=== PATIENT | male | born 1975 | race Caucasian/White ===

== ENCOUNTER 2016-11-16 20:36 | Emergency (ER) | payer BC ==
[~2016-11-16] VITALS: Ht 182.9 cm; Wt 121.6 kg
[2016-11-16] MEDS ORDERED: AZIT250T3 (21:42)
[2016-11-16] MEDS ORDERED: LISI10TA4 PO (21:42)
[2016-11-16] MEDS ORDERED: OMEP40CA2 PO (21:42)
[2016-11-16] MEDS ORDERED: ALLO15TA PO (21:42)
[2016-11-17] MEDS ORDERED: ALBUTEROL SULFATE 2.5 MG/0.5 ML INH NEB SOLN NEB ONE (00:15)
[2016-11-17] MEDS ORDERED: predniSONE 20 MG TAB PO ONE (00:15)
[2016-11-17] MEDS ORDERED: IBUPROFEN 600 MG TAB PO ONE (00:15)
[2016-11-17 01:57] VITALS: BP 147/93
[2016-11-17] MEDS ORDERED: PRED20TA PO (02:04)
[2016-11-17] MEDS ORDERED: TESS100C PO (02:07)
[2016-11-17] MEDS ORDERED: ALBU17IN INH (02:08)
--- NOTE | 2016-11-17 09:08 | REP ---
Chest x-ray: Two views. History: Cough. Comparison study: July 18, 2015. Findings: The lungs are well inflated and clear. The pleural angles are sharp. Heart size is normal. There are degenerative changes in the thoracic spine. Pulmonary vasculature is not increased. Impression: No active disease. Signed by Darron Dela Cruz MD 11/17/2016 02:47 P
== END 2016-11-17 02:26 | disposition home or self-care (01) ==
LOC: M ED 23:41
DX: J20.9 Acute bronchitis, unspecified (principal); M10.9 Gout, unspecified; K21.9 Gastro-esophageal reflux disease without esophagitis; I10 Essential (primary) hypertension; Z79.899 Other long term (current) drug therapy; Z79.52 Long term (current) use of systemic steroids

== ENCOUNTER → 2017-10-31 | Outpatient (CLI) | payer BC ==
[2017-10-31 17:31] LABS: ALBUMIN 3.4 GM/DL (3.2-5.2); ALBUMIN/GLOBULIN RATIO 0.89 (1.00-1.93); ALKALINE PHOSPHATASE 101 U/L (45-117); ALT/SGPT 58 U/L (12-78); ANION GAP 8 MEQ/L (8-16); AST/SGOT 72 U/L (7-37); BILIRUBIN,TOTAL 0.5 MG/DL (0.2-1.0); BLOOD UREA NITROGEN 8 MG/DL (7-18); CALCIUM LEVEL 8.8 MG/DL (8.5-10.1); CARBON DIOXIDE LEVEL 31 MEQ/L (21-32); CHLORIDE LEVEL 103 MEQ/L (98-107); CHOLESTEROL LEVEL 135 MG/DL (<200); CHOLESTEROL RISK RATIO 1.985 (<5); CREATININE FOR GFR 0.95 MG/DL (0.70-1.30); GLOMERULAR FILTRATION RATE > 60.0 (>60); GLUCOSE, FASTING 88 MG/DL (70-100); HDL CHOLESTEROL 68 MG/DL (>40); LDL CHOLESTEROL 51.2 MG/DL (<100); NON-HDL-C 67 MG/DL; POTASSIUM SERUM 4.2 MEQ/L (3.5-5.1); SODIUM LEVEL 142 MEQ/L (136-145); THYROID STIMULATING HORMONE 0.968 uIU/ML (0.358-3.740); TOTAL PROTEIN 7.2 GM/DL (6.4-8.2); TRIGLYCERIDES LEVEL 79 MG/DL (<150)
== END ==
LOC: M WUC 11:27
DX: Z00.00 Encounter for general adult medical examination without abnormal findings (principal); I10 Essential (primary) hypertension; R53.83 Other fatigue
CPT/HCPCS: 84443

== ENCOUNTER → 2017-11-20 | Outpatient (CLI) | payer BC | LOC: M SLEEP 20:00 | DX: G47.30 Sleep apnea, unspecified (principal) | CPT/HCPCS: 95810 ==

== ENCOUNTER → 2017-12-09 | Outpatient (CLI) | payer BC | LOC: M SLEEP 19:38 | DX: G47.33 Obstructive sleep apnea (adult) (pediatric) (principal) ==

== ENCOUNTER 2018-03-16 21:38 | Emergency (ER) | payer BC | END 2018-03-16 22:00 | disposition left against medical advice (07) | LOC: M ED 21:38 | DX: S00.561A Insect bite (nonvenomous) of lip, initial encounter (principal); W57.XXXA Bitten or stung by nonvenomous insect and other nonvenomous arthropods, initial encounter; Y92.9 Unspecified place or not applicable; Y93.9 Activity, unspecified; Y99.9 Unspecified external cause status; Z53.21 Procedure and treatment not carried out due to patient leaving prior to being seen by health care provider ==

== ENCOUNTER → 2018-09-09 | Outpatient (CLI) | payer BC ==
[~2018-09-09] MED LIST: ALBU17IN INH; ALLO15TA PO; ASPI81TA85 PO; AZIT-12; LISI10TA4 PO; MAGN1TAB25 PO; OMEP40CA2 PO; PRED20TA PO; TESS100C PO; ZYLO300T6 PO
[2018-09-09 17:00] LABS: INR 1.06; PROTHROMBIN TIME 13.9 SECONDS (12.1-14.4)
== END ==
LOC: M WUC 08:51
PROVIDERS: ATTEND Orthopaedic Surgery
DX: Z01.818 Encounter for other preprocedural examination (principal); M43.16 Spondylolisthesis, lumbar region; M54.16 Radiculopathy, lumbar region

== ENCOUNTER → 2018-09-29 | Outpatient (REF) | payer BC ==
[~2018-09-29] MED LIST changes: +BACT800T5 PO; +FLOM0.4C39 PO; +OXAY1TAB PO; +PROAAER10 INH
== END ==
LOC: M LAB REF 16:40
PROVIDERS: ATTEND Family Medicine
DX: M10.9 Gout, unspecified (principal)

== ENCOUNTER 2018-10-02 07:30 | Inpatient (IN) | payer BC ==
--- NOTE | 2018-09-20 12:18 | HPE ---
DATE OF ADMISSION: 10/02/2018 ATTENDING PHYSICIAN: Dr. Apple CHIEF COMPLAINT: Back pain and pain radiating down his left leg. HISTORY: This a pleasant 43-year-old male patient with progressively worsening back pain and pain radiating down his left leg. He has failed to improve with conservative management to include physical therapy, rest, nonsteroidal anti-inflammatory drugs (NSAIDs), activity modification, and steroid injections. He continues to have symptoms with normal day-to-day activities. He has elected for surgery for his continued symptoms. He has been consented by Dr. Apple for a left L4-5 unilateral laminectomy and posterior fusion with the use of pedicle screws and iliac crest bone graft and donor bone. X-rays are notable for a dynamic spondylolisthesis at L4 on 5. MRI notable for degenerative changes mainly at L4-5 and notable spondylolisthesis at left L4 on 5. CURRENT MEDICAL CONDITIONS: 1. Gout. 2. Hypertension. 3. Gastric reflux disease. 4. Lower extremity muscle spasms. CURRENT MEDICATIONS: - lisinopril 10 mg 1 tablet once per day - allopurinol 300 mg one tablet twice a day - Prilosec 40 mg 1 tablet once per day - magnesium 400 mg 1 tablet twice a day - 81 mg aspirin 1 tablet once per day (he will discontinue that 5 days prior to surgery) ALLERGIES: - MOTRIN - MOBIC PAST SURGICAL HISTORY: 1. Hernia repair. 2. Vasectomy. FAMILY HISTORY: Arthritis, hypertension, diabetes, heart disease. SOCIAL HABITS: He does not currently smoke. He does use alcohol six beverages per day. He currently works in the [employer] field. REVIEW OF SYSTEMS: Denies fever or chills. Denies chest pain, shortness breath or cough. Denies difficulty breathing. Denies change in his bowel or bladder habits. Denies recent upper respiratory infection (URI) or urinary tract infection (UTI) symptoms. Notes persistent back pain and pain down his left leg with activities of daily living. PHYSICAL EXAMINATION: Today, reveals a well-nourished, well-developed male patient. He ambulates with a normal gait. His gait is not wide-based. He does not use assistive devices. He sits comfortably on the exam room table. There is tenderness along the lumbar spine mainly around L4-5. He does have pain with particularly hyperextension. Deep tendon reflexes are 1 at the knees and 1 at the ankles. Muscle strength is 5/5 equal and symmetrical in major muscle groups. Straight leg raise testing is irritable on the left, negative on the right. He can sensate light touch in the lower extremities. Neck is supple without adenopathy or jugular venous distention (JVD). Lungs are clear to auscultation without rales or wheeze. Heart: Regular rate and rhythm. Abdomen: Bowel sounds are present. IMPRESSION: Lumbar degenerative disk disease, lumbar spondylolisthesis, lumbar spinal stenosis, and lower extremity radiculopathy with positive nerve conduction study. PLAN: He is consented by Dr. Apple for a posterior lateral fusion with the use of pedicle screws at L4 and L5 with a left sided laminectomy.
--- NOTE | 2018-09-29 19:57 | CR ---
PREOPERATIVE EVALUATION AND CONSULTATION DATE OF CONSULTATION: 09/29/2018 The patient is being seen on 09/29/2018, and his surgery is planned for 10/02/2018. PLANNED PROCEDURE: Left L4-L5 unilateral laminectomy to be completed on 10/02/2018. SURGEON: Dr. Dmitry Apple of [facility] CONSULTING PHYSICIAN: Dr. Angel Workman of [facility] CHIEF COMPLAINT: Preoperative evaluation. HISTORY OF PRESENT ILLNESS: This is a 43-year-old patient who presents today for preoperative evaluation prior to spinal surgery to be completed at [facility]. The patient today is to have an electrocardiogram (EKG) and basic metabolic panel (BMP), per anesthesia. Clinically, the patient notes that he feels well with the exception of his low back, from which pain radiates to his legs. This is found to be lumbar spinal stenosis and planned surgical intervention. He looks forward to surgery. He denies any new symptoms or issues. He has lost significant weight. He notes that he cutdown his alcohol intake significantly. He has now gone to a near vegetarian diet and has cutdown carbohydrates. He notes that he feels well. There is no history of cardiac symptoms. No chest pain, significant shortness of breath, palpitations, or other symptoms or concerns. He denies any respiratory symptoms. No wheezing, shortness of breath. He noted that as a child he had asthma and used a Ventolin inhaler with colds, but this has not been an issue. He does have sleep apnea and uses continuous positive airway pressure (CPAP) every night and will bring this to surgery. Otherwise, we addressed his hypertension, gastroesophageal reflux disease, and gout, all of which are well treated on his present medications. He denies any other issues or concerns. He has already held his aspirin due to the impending surgery. PAST MEDICAL HISTORY: 1. GERD. 2. Gout. 3. Hypertension. 4. History of hemorrhoids. 5. Obstructive sleep apnea with good compliance on CPAP. 6. Lumbar spinal stenosis. PAST SURGICAL HISTORY: 1. Ventral hernia repair by Dr. Chan, vertical incision above the umbilicus. 2. History of vasectomy. 3. History of hemorrhoidectomies by Dr. Chan. ALLERGIES: The patient has listed extreme fatigue on MOBIC and nausea on IBUPROFEN. He has NOT had any allergies causing anaphylaxis, angioedema or swelling of the throat. MEDICATIONS: - aspirin 81 mg by mouth daily - allopurinol 300 mg by mouth daily - magnesium 400 mg by mouth daily - Lisinopril 10 mg by mouth daily - multivitamin one tablet daily - omeprazole 40 mg by mouth daily - B complex and vitamin C tablets by mouth daily FAMILY HISTORY: Father had severe coronary artery disease, age 76, type 2 diabetes, history of gastrointestinal bleed. Mother is alive at age 68 with no chronic issues. Maternal grandfather of coronary artery disease. SOCIAL HISTORY: The patient is to his [place]. They have two children. 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 He is a former smoker, previously had consumed alcohol but has recently cutdown. REVIEW OF SYSTEMS: As per history of present illness, otherwise 10 system review is completely negative. PHYSICAL EXAMINATION: VITAL SIGNS: Weight is 251 pounds, blood pressure 120/74, pulse of 84, height of 5 feet 11 inches, Body Mass Index (BMI) of 35, decrease of 10 pounds over the last 4-1/2 months. GENERAL: He appears well. No acute distress. Nontoxic. Alert and oriented times three. HEENT: Pupils are equal, round and reactive to light and accommodation. Orbits are intact. There is no discharge. External ears are benign. Oral cavity and oropharynx benign. NECK: Supple. No lymphadenopathy or thyromegaly. HEART: Regular rate and rhythm. S1, S2. No murmurs are appreciated on careful auscultation. LUNGS: Clear to auscultation with no rales, rhonchi or wheezes. ABDOMEN: Obese but soft, nontender, nondistended. Scar is well healed and just above the umbilicus. EXTREMITIES: No clubbing, cyanosis or pitting edema. NEUROLOGIC: Exam is nonfocal. Upon discussion of his back, he notes tenderness across the low back with radiation to the legs bilaterally on report, examination deferred. EKG: Showed sinus arrhythmia; however, normal axis & intervals. There is some artifact in the STT segment of the lateral leads. When compared to a 06/27/2017 tracing, aside from an improved heart rate and sinus arrhythmia, the morphology is quite similar. Laboratories completed today show a glucose of 87, creatinine 0.9. The remainder of the BMP is normal, as is magnesium of 1.8 and a uric acid level of 3.3. ASSESSMENT AND PLAN: 1. Preoperative evaluation. At this point in time, the patient does appear to be optimized based on the information available to me. He has no known cardiac issues. Although he has what appears to be a sinus arrhythmia, this has been completely asymptomatic. He has also had no wheezing or other respiratory concerns at this point in time. He does have obstructive sleep apnea and will bring his CPAP with him. He has had good compliance on this. The patient has stopped his aspirin already and will stay off of this until instructed to return after surgery. His other medical issues appear to be stable without concern or issue at this point. He will continue appropriate followup. If he has new issues prior to surgery, he will let Dr. Apple know. If you have any questions, please contact me at [phone]. 2. Lumbar stenosis. The patient looks forward to surgical intervention and improving symptomatology long-term. 3. Obstructive sleep apnea. The patient will bring his CPAP with him and understands the importance and will be monitored closely due to his known condition and other risks inherent to this. 4. Hypertension, well controlled on present medication. He will hold his Lisinopril the day of surgery. 5. Gastroesophageal reflux disease (GERD). The patient has been able to stop his omeprazole without return of symptoms on an H2 boby. He is losing weight and this may be opportunity in the future for a new trial. 6. Gout. Has done well since his allopurinol has been increased. No issues. We do await a uric acid level. 7. Ongoing care. He will see me again as scheduled in about 6 weeks with appropriate laboratories. If he has any issues perioperatively, please feel free to contact me. I am sending a template for this note to both Dr. Apple's office, as well as surgical documentation intake office. AILYN
[~2018-10-02] VITALS: Ht 180.3 cm; Wt 126.9 kg
[~2018-10-02 07:30] MED LIST changes: -BACT800T5 PO; -FLOM0.4C39 PO; -OXAY1TAB PO; -PROAAER10 INH
[2018-10-02] MEDS ORDERED: CelecoXIB (CeleBREX) 100 MG CAP PO ONE (11:15)
[2018-10-02] MEDS ORDERED: PERCOCET 5MG/325MG TAB PO ONE (11:15)
[2018-10-02] MEDS ORDERED: LR 1,000 ML IV ONE (11:15)
[2018-10-02] MEDS ORDERED: ceFAZolin SOD 1 GM in D5W MINI-BAG PLUS 50 ML IV ONE (11:15)
[2018-10-02] MEDS ORDERED: GABAPENTIN 300 MG CAP PO ONE (11:15)
[2018-10-02] MEDS ORDERED: PROAAER10 INH (11:47)
[2018-10-02] MEDS ORDERED: MIDAZOLAM INJ 2 MG/2 ML VIAL (J2250) As Ordered ONE (12:50)
[2018-10-02] MEDS ORDERED: PROPOFOL 200 MG/20 ML VIAL As Ordered ONE ×2 (12:50→18:02)
[2018-10-02] MEDS ORDERED: LIDOCAINE 2% INJ 100 MG/5 ML SDV (FOR ANES.) As Ordered ONE (12:50)
[2018-10-02] MEDS ORDERED: fentaNYL 100 MCG/2 ML INJECTION (J3010) As Ordered ONE ×3 (12:50→18:43)
[2018-10-02] MEDS ORDERED: ROCURONIUM BROMIDE 50 MG/5 ML VIAL As Ordered ONE ×2 (12:50→17:07)
[2018-10-02] MEDS ORDERED: dexameTHASONE 4 MG/ML 1ML VIAL (J1100) As Ordered ONE (12:53)
[2018-10-02] MEDS ORDERED: SUGAMMADEX SODIUM 500 MG/5 ML VIAL (BRIDION) As Ordered ONE ×2 (12:57→16:41)
[2018-10-02] MEDS ORDERED: TRANEXAMIC ACID 100 MG/ML 10ML VIAL As Ordered ONE (13:08)
[2018-10-02] MEDS ORDERED: BUPIVACAINE/EPIN 0.25% 30 ML VIAL As Ordered ONE (13:08)
[2018-10-02] MEDS ORDERED: BUPIVACAINE LIPOSOME/PF 1.3% 20ML VIAL (13.3MG/ML)(EXPAREL)(C9290 PER1MG) As Ordered ONE (13:09)
[2018-10-02] MEDS ORDERED: BACITRACIN PWD 50,000 UNITS VIAL As Ordered ONE (13:09)
[2018-10-02] MEDS ORDERED: VANCOMYCIN HCL 500 MG/10 ML VIAL (J3370) As Ordered ONE (13:09)
[2018-10-02] MEDS ORDERED: BUPIVACAINE HCL 0.5% 30 ML VIAL As Ordered ONE (13:09)
[2018-10-02] MEDS ORDERED: EPINEPHrine INJ 1 MG/ML 1ML AMP As Ordered ONE (13:09)
[2018-10-02] MEDS ORDERED: THROMBIN SOLN 20,000 UNITS KIT As Ordered ONE (13:10)
[2018-10-02] MEDS ORDERED: HYDROmorphone HCL 2 MG/ML 1ML VIAL (J1170) As Ordered ONE (15:16)
[2018-10-02] MEDS ORDERED: PHENYLEPHRINE INJ 10MG/ML VIAL (J2370) As Ordered ONE (15:17)
[2018-10-02] MEDS ORDERED: LIDOCAINE 2% 5ML JELLY UROJET As Ordered ONE ×2 (15:18→16:05)
[2018-10-02] MEDS ORDERED: CONRAY-60 60% 50ML VIAL (Q9961) As Ordered ONE (16:05)
[2018-10-02] MEDS ORDERED: CYSTO-CONRAY II 17.2% 250ML VIAL (Q9958) As Ordered ONE (16:22)
[2018-10-02] MEDS ORDERED: ONDANSETRON 4MG/2ML VIAL (J2405) As Ordered ONE (16:41)
[2018-10-02 18:15] VITALS: BP 131/86
[2018-10-02] MEDS: fentaNYL 100 MCG/2 ML INJECTION (J3010) IV PRN ×4 (18:44→19:10)
[2018-10-02] MEDS ORDERED: LR 1,000 ML IV SCH (19:00)
[2018-10-02] MEDS ORDERED: ONDANSETRON 4MG/2ML VIAL (J2405) IV PRN (19:00)
[2018-10-02] MEDS ORDERED: PERCOCET 5MG/325MG TAB PO PRN (19:00)
[2018-10-02] MEDS ORDERED: METOCLOPRAMIDE INJ 10MG/2ML VIAL (J2765) IV PRN (19:00)
--- NOTE | 2018-10-02 20:04 | REP ---
Retrograde urethrogram and cystogram. History: Stricture. Placement of suprapubic catheter. Fluoroscopy time was 57 seconds. Findings: A sequence of 13 last image hold fluoroscopically obtained spot radiographs document urethral contrast injection and cystostomy catheter injection. There is some contrast extravasation into the vikas vesicle space and some lymphatic reflux is observed on the retrograde urethrogram. Electronically Signed by Darron Dela Cruz MD 10/02/2018 08:27 P
--- NOTE | 2018-10-02 20:04 | REP ---
LIMITED PELVIC ULTRASOUND: HISTORY: Suprapubic catheter placement. Two images of the urinary bladder were obtained. The bladder is not well distended. There are no filling defects in the urinary bladder. IMPRESSION:Limited pelvic ultrasound as described. Electronically Signed by Azael Oropeza MD 10/03/2018 08:25 A
[2018-10-02 20:45] VITALS: BP 130/84
[2018-10-02 21:15] VITALS: BP 134/90
[2018-10-02] MEDS ORDERED: ALBUTEROL 90 MCG/ACT 8GM HFA INHALER INH PRN (21:30)
[2018-10-02] MEDS ORDERED: ACETAMINOPHEN 500 MG TAB PO PRN (21:30)
[2018-10-02 22:15] VITALS: BP 130/86
[2018-10-02 23:15] VITALS: BP 126/80
[2018-10-02] MEDS: PERCOCET 5MG/325MG TAB PO PRN (23:36)
[2018-10-03 00:15] VITALS: BP 121/70
[2018-10-03 01:15] VITALS: BP 118/66
[2018-10-03 05:15] VITALS: BP 127/84
[2018-10-03 06:00] VITALS: BP 127/84
[2018-10-03] MEDS: PERCOCET 5MG/325MG TAB PO PRN ×2 (06:37→11:35)
--- NOTE | 2018-10-03 07:15 | RO ---
DATE OF PROCEDURE: 10/02/2018 PREOPERATIVE DIAGNOSIS: POSTOPERATIVE DIAGNOSIS: PROCEDURE: SURGEON: Dr. Dmitry Apple SWITCHER: ANESTHESIA: DESCRIPTION OF PROCEDURE: The date of the procedure was to be 10/02/2018. Mr. Pineda is a 43-year-old gentleman who was to have a spinal decompression and fusion procedure for spondylolisthesis. He was seen and examined in the preoperative holding area. The consent was recently reviewed. The patient was brought to the operating room. He was intubated and then unfortunately we were unable to catheterize the patient with a Sheets catheter. Because of this, we contacted urology, Dr. Wall, in consultation to help us potentially put in a Coude catheter. She utilized viscous lidocaine along with a Coude catheter and was not able to cannulate the patient's bladder with the catheter. Then she implemented cystoscopy and was not able to cannulate the patient's bladder. Because of this we canceled the patient's spinal surgery and Dr. Wall took over from there because of the patient's outlet obstruction to implement further interventions, potentially a suprapubic catheter. For further details, please refer to Dr. Wall's notes and interpretation. I did meet with Mr. Pineda's after we canceled the procedure and I explained the situation. Dr. Wall also met with Mr. Pineda's and discussed potential interventions for the outlet obstruction. For further details, please refer to Dr. Wall's notes.
[2018-10-03] MEDS ORDERED: LISINOPRIL 10 MG TAB PO SCH (09:00)
[2018-10-03] MEDS ORDERED: ALLOPURINOL 300 MG TAB PO SCH ×2 (09:00→21:00)
[2018-10-03] MEDS ORDERED: OMEPRAZOLE 20 MG CAP PO SCH ×2 (09:00→21:00)
[2018-10-03] MEDS ORDERED: ASPIRIN 81 MG ENTERIC TAB PO SCH (09:00)
[2018-10-03] MEDS ORDERED: BACT800T5 PO (10:07)
[2018-10-03] MEDS ORDERED: FLOM0.4C39 PO (10:07)
[2018-10-03] MEDS ORDERED: OXAY1TAB PO (10:07)
--- NOTE | 2018-10-10 09:40 | DSES ---
DATE OF ADMISSION: 10/02/2018 DATE OF DISCHARGE: 10/03/2018 HISTORY OF PRESENT ILLNESS This is a pleasant 43-year-old male with continuing back pain and left leg radiating discomfort. He consented for a left L4-5 unilateral laminectomy and posterior fusion with use of pedicle screws, iliac crest bone graft and donor bone. X-rays were notable for dynamic spondylolisthesis at L4 on 5. MRI notable for degenerative changes, mainly at L4-5 and notable spondylolisthesis at L4 on 5. This proposed procedure was actually cancelled secondary to her urethral stricture. AILYN
== END 2018-10-03 12:49 | disposition home or self-care (01) | DRG 951 ==
LOC: M OR 11:00 → M MSPAV 20:00
PROVIDERS: ADMIT Orthopaedic Surgery; ATTEND Orthopaedic Surgery
PROC: 0T9B00Z Drainage of Bladder with Drainage Device, Open Approach (ICD-10-PCS; principal; 2018-10-02 13:25)
DX: M43.16 Spondylolisthesis, lumbar region (principal); I10 Essential (primary) hypertension; N32.0 Bladder-neck obstruction; M51.26 Other intervertebral disc displacement, lumbar region; Z53.29 Procedure and treatment not carried out because of patient's decision for other reasons; M10.9 Gout, unspecified; K21.9 Gastro-esophageal reflux disease without esophagitis; Z79.899 Other long term (current) drug therapy; Z79.82 Long term (current) use of aspirin; Z88.8 Allergy status to other drugs, medicaments and biological substances; G47.33 Obstructive sleep apnea (adult) (pediatric)

== ENCOUNTER → 2018-10-12 | Outpatient (REF) | payer BC ==
[~2018-10-12] MED LIST changes: +BACT800T5 PO; +FLOM0.4C39 PO; +LEVO500T3 PO; +MAGN250T7 PO; +OXAY1TAB PO; +PROAAER10 INH
== END ==
LOC: M SMT 17:18
PROVIDERS: ATTEND Nurse Practitioner Family
DX: T14.8XXA Other injury of unspecified body region, initial encounter (principal); W18.30XA Fall on same level, unspecified, initial encounter; Y92.009 Unspecified place in unspecified non-institutional (private) residence as the place of occurrence of the external cause

== ENCOUNTER 2018-10-18 06:05 | Day surgery (SDC) | payer BC ==
[~2018-10-18] VITALS: Ht 182.9 cm; Wt 113.4 kg
[2018-10-18] MEDS ORDERED: LIDOCAINE 2% INJ 100 MG/5 ML SDV (FOR ANES.) As Ordered ONE (06:59)
[2018-10-18] MEDS ORDERED: ONDANSETRON 4MG/2ML VIAL (J2405) As Ordered ONE ×2 (06:59→08:46)
[2018-10-18] MEDS ORDERED: fentaNYL 250 MCG/5 ML INJECTION (J3010) As Ordered ONE (06:59)
[2018-10-18] MEDS ORDERED: MIDAZOLAM INJ 2 MG/2 ML VIAL (J2250) As Ordered ONE ×2 (06:59→08:21)
[2018-10-18] MEDS ORDERED: PROPOFOL 200 MG/20 ML VIAL As Ordered ONE (06:59)
[2018-10-18] MEDS ORDERED: ROCURONIUM BROMIDE 50 MG/5 ML VIAL As Ordered ONE (06:59)
[2018-10-18] MEDS ORDERED: dexameTHASONE 4 MG/ML 1ML VIAL (J1100) As Ordered ONE (07:00)
[2018-10-18] MEDS ORDERED: LR 1,000 ML IV ONE (07:00)
[2018-10-18] MEDS ORDERED: GENTAMICIN 80 MG in APPROPRIATE DILUENT 1 EA IV ONE (07:00)
[2018-10-18] MEDS ORDERED: PIPERACILLIN/TAZOBACTAM SOD 3.375 GM in D5W MINI-BAG PLUS 50 ML IV ONE (07:00)
[2018-10-18] MEDS ORDERED: HYDROmorphone HCL 2 MG/ML 1ML VIAL (J1170) As Ordered ONE (07:00)
[2018-10-18] MEDS ORDERED: SUGAMMADEX SODIUM 500 MG/5 ML VIAL (BRIDION) As Ordered ONE (07:01)
[2018-10-18] MEDS ORDERED: LIDOCAINE 1% SDV INJ 30 ML VIAL As Ordered ONE (07:14)
[2018-10-18] MEDS ORDERED: BUPIVACAINE HCL 0.25% 30 ML VIAL As Ordered ONE (07:14)
[2018-10-18] MEDS ORDERED: KETAMINE HCL 200 MG/20 ML VIAL As Ordered ONE (08:19)
[2018-10-18] MEDS ORDERED: PHENYLephrine HCL 500 MCG/5 ML (100MCG/ML) SYRINGE (J2370) As Ordered ONE ×2 (08:22→08:35)
[2018-10-18] MEDS ORDERED: CALCIUM CHLORIDE 10% 1 GM/10 ML SYR As Ordered ONE (08:46)
[2018-10-18] MEDS ORDERED: VASOPRESSIN INJ 20 UNITS/ML VIAL As Ordered ONE (08:53)
[2018-10-18] MEDS ORDERED: fentaNYL 100 MCG/2 ML INJECTION (J3010) As Ordered ONE (10:35)
[2018-10-18] MEDS: fentaNYL 100 MCG/2 ML INJECTION (J3010) IV PRN ×4 (10:38→10:54)
[2018-10-18] MEDS ORDERED: HYDROMORPHONE HCL 0.5 MG/ 0.5 ML SYRINGE (J1170 PER 1) IV PRN (10:45)
[2018-10-18] MEDS ORDERED: PERCOCET 5MG/325MG TAB PO PRN ×2 (10:45)
[2018-10-18] MEDS ORDERED: ONDANSETRON 4MG/2ML VIAL (J2405) IV PRN (10:45)
[2018-10-18] MEDS ORDERED: LR 1,000 ML IV SCH (10:45)
[2018-10-18] MEDS: PERCOCET 5MG/325MG TAB PO PRN ×2 (10:48→12:20)
[2018-10-18 12:40] VITALS: BP 132/88
--- NOTE | 2018-10-18 14:53 | RO ---
DATE OF PROCEDURE: 10/18/2018 PREOPERATIVE DIAGNOSIS: Urethral stricture. POSTOPERATIVE DIAGNOSIS: Urethral stricture. PROCEDURE: Open cystotomy and suprapubic catheter placement. SURGEON: Mandeep Quevedo MD SERVICE WRITER ADVISOR: JADYN Quinones ANESTHESIA: General. OPERATIVE INDICATIONS: This is a 43-year-old male who was brought to the operating room a few weeks ago for attempted back surgery, but at the time, they could not get a catheter in. He was found to have a urethral stricture at that time; and, therefore, a 14-Albanian suprapubic catheter was placed. The patient will likely need urethra reconstructive surgery; and in preparation for that, he was brought back to the operating room to upsize the suprapubic catheter. DESCRIPTION OF PROCEDURE: The patient was brought to the operating room where general anesthesia was induced. Prophylactic antibiotics were infused. He was then placed in the supine position and prepped and draped in the usual sterile fashion. Of note, his previously-placed 14-Albanian suprapubic catheter was prepped into the operative field. At this point, an approximately 3-4-cm midline suprapubic incision was made in line with the previously-placed suprapubic catheter. I then dissected down through the subcutaneous tissues and debrided any unhealthy-appearing tissue. The rectus fascia was then opened, and then the bellies of the rectus muscle were bluntly spread. I then dissected down to the bladder at this point. I then utilized the previously-placed 14-Albanian suprapubic catheter to fill the bladder with approximately 100 mL of normal saline. A clamp was placed on this. I then dissected down to the perivesical fat; and then using a spinal needle, I aspirated an area that I thought was the bladder and confirmed it was indeed the bladder. Once that was done, a 3-0 chromic pursestring stitch was then placed at the dome of the bladder. A cystotomy was then performed using a combination of Bovie and a scissors. Once fluid started draining, a 20-Albanian catheter was inserted into the cystotomy, and the balloon was filled with 7 mL of sterile water. The pursestring stitch was then tied down around the new suprapubic catheter. I then placed a 2-0 Vicryl figure-of-8 stitch around the previously-placed suprapubic catheter, and then that 14-Albanian catheter was removed. The figure-of-8 stitch was tied down to close the old cystotomy. At this point, the wound was thoroughly irrigated with warm normal saline. I then closed the rectus fascia using several figure-of-8 #1 nonlooped polydioxanone suture (PDS). Once the fascia was closed, the wound was thoroughly irrigated again with warm saline. I then reapproximated the subcutaneous tissues using interrupted 3-0 Vicryl suture. Once that was done, the skin was closed around the suprapubic catheter using running 4-0 Monocryl subcuticular stitch. Once the skin was closed, I then further secured the suprapubic catheter with two separate #0 Prolene sutures into the skin and around the catheter to help prevent it from being pulled accidentally. Once that was done, local anesthetic was applied, and then Dermabond was applied to the incision, and then this marked the conclusion of the procedure. The catheter was then connected to gravity drainage. The patient was awakened from anesthesia and transported to the recovery room in stable condition. ESTIMATED BLOOD LOSS: 10 mL. COMPLICATIONS: None. SPECIMENS: None. PLAN: The patient will be followup in the clinic in approximately 2 weeks for postoperative visit. Assuming he is doing well at that point, we will get him referred to [facility] for possible urethral reconstructive surgery. AILYN
== END 2018-10-18 12:41 | disposition home or self-care (01) ==
LOC: M SDC 06:05
PROVIDERS: ATTEND Urology
DX: N35.919 Unspecified urethral stricture, male, unspecified site (principal); I10 Essential (primary) hypertension; M10.9 Gout, unspecified; K21.9 Gastro-esophageal reflux disease without esophagitis; M12.9 Arthropathy, unspecified; M54.5 Low back pain; M54.16 Radiculopathy, lumbar region; J45.909 Unspecified asthma, uncomplicated; R06.83 Snoring; G47.33 Obstructive sleep apnea (adult) (pediatric); F41.9 Anxiety disorder, unspecified; T88.59XD Other complications of anesthesia, subsequent encounter; Z88.6 Allergy status to analgesic agent; Z79.899 Other long term (current) drug therapy; Z87.891 Personal history of nicotine dependence
CPT/HCPCS: 51102; J1100; J1170; J1580; J2250; J2370; J2405; J2543; J3010

== ENCOUNTER → 2018-10-31 | Outpatient (REF) | payer BC ==
[2018-10-31 19:57] LABS: INFLUENZA A AMPLIFICATION NEGATIVE (NEGATIVE); INFLUENZA B AMPLIFICATION NEGATIVE (NEGATIVE)
== END ==
LOC: M LAB REF 17:49
PROVIDERS: ATTEND Physician Assistant Medical
DX: J11.1 Influenza due to unidentified influenza virus with other respiratory manifestations (principal)

== ENCOUNTER → 2018-12-22 | Outpatient (CLI) | payer BC ==
[~2018-12-22] MED LIST changes: -ALLO15TA PO; +ALLO300T2 PO; -MAGN1TAB25 PO; +MAGN1TAB26 PO
--- NOTE | 2018-12-22 10:35 | REP ---
MR BRAIN WITHOUT CONTRAST: HISTORY: Involuntary movements. Several punctate areas of increased signal intensity on T2-weighted images are present in the subcortical white matter. This represents small vessel ischemic disease. There is no intraparenchymal hemorrhage, infarct, mass or midline shift. The ventricular system is normal in appearance. There is no extracerebral collection. Mucosal thickening is present in the maxillary and sphenoid sinuses. IMPRESSION: Minimal small vessel ischemic disease. Electronically Signed by Azael Oropeza MD 12/22/2018 10:41 A
== END ==
LOC: M RAD 09:30
PROVIDERS: ATTEND Psychiatry & Neurology Neurology
DX: I67.82 Cerebral ischemia (principal); R25.8 Other abnormal involuntary movements; R25.1 Tremor, unspecified; R20.2 Paresthesia of skin

== ENCOUNTER → 2019-01-06 | Outpatient (CLI) | payer BC ==
[2019-01-06 19:16] LABS: FREE T4 0.99 NG/DL (0.76-1.46); RHEUMATOID FACTOR QUANT < 10.0 IU/ML (<15.0); THYROID STIMULATING HORMONE 0.579 uIU/ML (0.358-3.740); TOTAL PROTEIN 6.6 GM/DL (6.4-8.2)
[2019-01-06 19:20] LABS: HEMOGLOBIN A1c 4.9 %
[2019-01-09 12:45] LABS: ALBUMIN 3.39 GM/DL (3.29-5.55); ALBUMIN % 51.4 % (55.8-66.1); ALPHA-1-GLOBULIN % 4.9 % (2.9-4.9); ALPHA-1-GLOBULINS 0.32 GM/DL (0.17-0.41); ALPHA-2-GLOBULINS 0.63 GM/DL (0.42-0.99); ALPHA-2-GLOBULINS % 9.5 % (7.1-11.8); BETA-1-GLOBULINS 0.56 GM/DL (0.28-0.60); BETA-1-GLOBULINS % 8.5 % (4.7-7.2); BETA-2-GLOBULINS 0.42 GM/DL (0.19-0.55); BETA-2-GLOBULINS % 6.3 % (3.2-6.5); GAMMA GLOBULIN % 19.4 % (11.1-18.8); GAMMA GLOBULINS 1.28 GM/DL (0.65-1.58)
[2019-01-09 14:25] LABS: VITAMIN B12 LEVEL 289 PG/ML
[2019-01-09 14:26] LABS: FOLATE 8.5 NG/ML
== END ==
LOC: M WUC 15:30
PROVIDERS: ATTEND Psychiatry & Neurology Neurology
DX: E07.9 Disorder of thyroid, unspecified (principal); E11.9 Type 2 diabetes mellitus without complications; R20.0 Anesthesia of skin

== ENCOUNTER → 2019-01-26 | Outpatient (REF) | payer BC ==
[2019-01-26 14:00] LABS: APPEARANCE, URINE TURBID (CLEAR); BACTERIA, URINE AUTO 1+ (NEGATIVE); BILIRUBIN, URINE AUTO NEGATIVE (NEGATIVE); BLOOD, URINE BLOOD 1+ (NEGATIVE); COLOR, URINE AMBER (YELLOW); GLUCOSE, URINE (UA) AUTO NEGATIVE (NEGATIVE); KETONE, URINE AUTO 1+ mg/dL (NEGATIVE); LEUKOCYTE ESTERASE, URINE AUTO 3+ (NEGATIVE); NITRITE, URINE AUTO NEGATIVE (NEGATIVE); PROTEIN, URINE AUTO 2+ mg/dL (NEGATIVE); RBC, URINE AUTO 18 /HPF (0-3); SPECIFIC GRAVITY URINE AUTO 1.018 (1.002-1.035); SQUAMOUS EPITHELIAL CELL UR AU 0 /HPF (0-6); UROBILINOGEN, URINE AUTO 0.2 mg/dL (0.0-2.0); WBC, URINE AUTO TNTC /HPF (0-3)
== END ==
LOC: M LAB REF 13:11
PROVIDERS: ATTEND Student in an Organized Health Care Education/Training Program
DX: R39.9 Unspecified symptoms and signs involving the genitourinary system (principal)

== ENCOUNTER → 2019-05-12 | Outpatient (CLI) | payer BC ==
[~2019-05-12] MED LIST changes: -OMEP40CA2 PO; +OMEP40CA97 PO
[2019-05-12 18:57] LABS: ALBUMIN 3.6 GM/DL (3.2-5.2); ALT/SGPT 33 U/L (12-78); BILIRUBIN,TOTAL 0.5 MG/DL (0.2-1.0); BLOOD UREA NITROGEN 6 MG/DL (7-18); CALCIUM LEVEL 8.9 MG/DL (8.5-10.1); CARBON DIOXIDE LEVEL 28 MEQ/L (21-32); CHLORIDE LEVEL 102 MEQ/L (98-107); CHOLESTEROL LEVEL 166 MG/DL (<200); CHOLESTEROL RISK RATIO 1.522 (<5); CREATININE FOR GFR 0.79 MG/DL (0.70-1.30); GLOMERULAR FILTRATION RATE > 60.0 (>60); GLUCOSE, FASTING 82 MG/DL (70-100); HDL CHOLESTEROL 109 MG/DL (>40); LDL CHOLESTEROL 48 MG/DL (<100); MAGNESIUM LEVEL 2.1 MG/DL (1.8-2.4); NON-HDL-C 57 MG/DL; POTASSIUM SERUM 3.8 MEQ/L (3.5-5.1); SODIUM LEVEL 140 MEQ/L (136-145); THYROID STIMULATING HORMONE 0.737 uIU/ML (0.358-3.740); TOTAL PROTEIN 7.2 GM/DL (6.4-8.2); TRIGLYCERIDES LEVEL 47 MG/DL (<150); URIC ACID 2.9 MG/DL (3.5-7.2)
== END ==
LOC: M WUC 09:01
PROVIDERS: ATTEND Family Medicine
DX: E78.5 Hyperlipidemia, unspecified (principal); E83.42 Hypomagnesemia; M10.9 Gout, unspecified; I10 Essential (primary) hypertension

== ENCOUNTER → 2019-07-09 | Outpatient (REF) | payer BC ==
[2019-07-09 20:00] LABS: FOLATE 6.6 NG/ML
== END ==
LOC: M LABNEURO 15:07
PROVIDERS: ATTEND Psychiatry & Neurology Neurology
DX: D51.9 Vitamin B12 deficiency anemia, unspecified (principal)

== ENCOUNTER → 2019-09-09 | Outpatient (CLI) | payer BC ==
[2019-09-09 18:29] LABS: ALBUMIN 3.7 GM/DL (3.2-5.2); ALT/SGPT 18 U/L (12-78); BILIRUBIN,TOTAL 0.5 MG/DL (0.2-1.0); BLOOD UREA NITROGEN 11 MG/DL (7-18); CALCIUM LEVEL 9.4 MG/DL (8.5-10.1); CARBON DIOXIDE LEVEL 31 MEQ/L (21-32); CHLORIDE LEVEL 103 MEQ/L (98-107); CREATININE FOR GFR 0.89 MG/DL (0.70-1.30); GLOMERULAR FILTRATION RATE > 60.0 (>60); GLUCOSE, FASTING 90 MG/DL (70-100); POTASSIUM SERUM 3.8 MEQ/L (3.5-5.1); SODIUM LEVEL 141 MEQ/L (136-145); TOTAL PROTEIN 7.4 GM/DL (6.4-8.2); URIC ACID 4.5 MG/DL (3.5-7.2)
== END ==
LOC: M WUC 15:09
PROVIDERS: ATTEND Family Medicine
DX: M10.9 Gout, unspecified (principal); I10 Essential (primary) hypertension

== ENCOUNTER → 2020-03-01 | Outpatient (CLI) | payer BC ==
[2020-03-01 18:13] LABS: ALBUMIN 3.8 GM/DL (3.2-5.2); ALT/SGPT 29 U/L (12-78); BILIRUBIN,TOTAL 0.6 MG/DL (0.2-1.0); BLOOD UREA NITROGEN 10 MG/DL (7-18); CALCIUM LEVEL 8.9 MG/DL (8.5-10.1); CARBON DIOXIDE LEVEL 31 MEQ/L (21-32); CHLORIDE LEVEL 105 MEQ/L (98-107); CHOLESTEROL LEVEL 180 MG/DL (<200); CHOLESTEROL RISK RATIO 1.714 (<5); CREATININE FOR GFR 0.78 MG/DL (0.70-1.30); GLOMERULAR FILTRATION RATE > 60.0 (>60); GLUCOSE, FASTING 83 MG/DL (70-100); HDL CHOLESTEROL 105 MG/DL (>40); LDL CHOLESTEROL 67 MG/DL (<100); NON-HDL-C 75 MG/DL; POTASSIUM SERUM 3.8 MEQ/L (3.5-5.1); SODIUM LEVEL 140 MEQ/L (136-145); TOTAL PROTEIN 7.4 GM/DL (6.4-8.2); TRIGLYCERIDES LEVEL 42 MG/DL (<150); URIC ACID 5.1 MG/DL (3.5-7.2)
== END ==
LOC: M WUC 10:06
PROVIDERS: ATTEND Family Medicine
DX: R53.83 Other fatigue (principal); E78.5 Hyperlipidemia, unspecified; M10.9 Gout, unspecified; I10 Essential (primary) hypertension

== ENCOUNTER → 2020-08-23 | Outpatient (CLI) | payer BC ==
[~2020-08-23] MED LIST changes: -ASPI81TA85 PO; +ASPI81TA86 PO
[2020-08-23 11:03] LABS: BASO # 0.1 10^3/uL (0.0-0.2); BASO % 1.7 % (0.0-1.0); EOS # 0.1 10^3/uL (0.0-0.5); EOS % 4.8 % (0.0-3.0); HEMATOCRIT 37.8 % (42.0-52.0); LYMPH # 1.2 10^3/uL (1.5-5.0); LYMPH % 39.8 % (24.0-44.0); MEAN CORPUSCULAR HEMOGLOBIN 32.2 pg (27.0-33.0); MEAN CORPUSCULAR HGB CONC 34.4 g/dl (32.0-36.5); MEAN CORPUSCULAR VOLUME 93.6 fl (80.0-96.0); MONO # 0.4 10^3/uL (0.0-0.8); MONO % 14.2 % (0.0-5.0); NEUTROPHILS # 1.1 10^3/uL (1.5-8.5); NEUTROPHILS % 39.2 % (36.0-66.0); PLATELET COUNT, AUTOMATED 129 10^3/uL (150-450); RED BLOOD COUNT 4.04 10^6/uL (4.30-6.10); WHITE BLOOD COUNT 2.9 10^3/uL (4.0-10.0)
[2020-08-23 11:27] LABS: ALBUMIN 3.7 GM/DL (3.2-5.2); ALT/SGPT 23 U/L (12-78); BILIRUBIN,TOTAL 0.5 MG/DL (0.2-1.0); BLOOD UREA NITROGEN 8 MG/DL (7-18); CALCIUM LEVEL 8.9 MG/DL (8.5-10.1); CARBON DIOXIDE LEVEL 29 MEQ/L (21-32); CHLORIDE LEVEL 105 MEQ/L (98-107); CREATININE FOR GFR 0.85 MG/DL (0.70-1.30); GLOMERULAR FILTRATION RATE > 60.0 (>60); GLUCOSE, FASTING 107 MG/DL (70-100); POTASSIUM SERUM 3.7 MEQ/L (3.5-5.1); SODIUM LEVEL 142 MEQ/L (136-145); TOTAL PROTEIN 7.2 GM/DL (6.4-8.2); URIC ACID 5.3 MG/DL (3.5-7.2)
[2020-08-25 10:13] LABS: VITAMIN B12 LEVEL > 2000 PG/ML (247-911)
== END ==
LOC: M LAB 09:33
PROVIDERS: ATTEND Family Medicine
DX: E53.8 Deficiency of other specified B group vitamins (principal); I10 Essential (primary) hypertension; M10.9 Gout, unspecified

== ENCOUNTER → 2021-07-14 | Outpatient (REF) | payer BC ==
[~2021-07-14] MED LIST changes: +LISI10TA22 PO; -LISI10TA4 PO; +OMEP40CA4 PO; -OMEP40CA97 PO
== END ==
LOC: M LAB REF 16:40
PROVIDERS: ATTEND Family Medicine
DX: M10.9 Gout, unspecified (principal)

== ENCOUNTER → 2021-07-28 | Outpatient (CLI) | payer BC ==
--- NOTE | 2021-07-28 09:29 | REP ---
INDICATION: ELEVATED LFT'S. COMPARISON: None TECHNIQUE: Real-time sonographic evaluation of the right upper quadrant with Doppler FINDINGS: Multiple ultrasonographic images of the liver show diffuse increased echoes throughout the hepatic parenchyma without evidence of a mass or ductal dilatation. The common bile duct measures approximately 3 mm in its greatest transverse dimension. Multiple ultrasonographic images of the gallbladder show no focal or diffuse gallbladder wall thickening. There are no echogenic foci within the gallbladder lumen, which casts acoustic shadows. There is no pericholecystic edema. Images of the pancreatic region show no gross abnormality. The imaged portion of the right kidney is unremarkable. IMPRESSION: Fatty infiltration of the liver. Accredited by the [employer] in General Ultrasound. <Electronically signed by Demian Sullivan > 07/28/21 [id number]
== END ==
LOC: M RAD 07:34
PROVIDERS: ATTEND Family Medicine
DX: K76.0 Fatty (change of) liver, not elsewhere classified (principal); R94.5 Abnormal results of liver function studies

== ENCOUNTER → 2021-09-26 | Outpatient (CLI) | payer BC ==
[~2021-09-26] MED LIST changes: +ALLO10TA PO; +ASPI81TA26 PO; +COLA100C5 PO; +CYAN500T14 PO; -LEVO500T3 PO; +LEVO500T4 PO; +OXYB5TAB10 PO; +VITMTA PO
== END ==
LOC: M LABSMTC 10:46
PROVIDERS: ATTEND Anesthesiology
DX: Z01.812 Encounter for preprocedural laboratory examination (principal); Z20.822 Contact with and (suspected) exposure to COVID-19

== ENCOUNTER 2021-10-01 08:48 | Day surgery (SDC) | payer SELFPAY ==
[~2021-10-01] VITALS: Ht 180.3 cm; Wt 102.4 kg
[~2021-10-01 08:48] MED LIST changes: +NS 1,000 ML IV ONE
[2021-10-01] MEDS ORDERED: propofoL 200 MG/20 ML VIAL As Ordered ONE (09:39)
[2021-10-01 10:15] VITALS: BP 122/84
== END 2021-10-01 10:50 | disposition home or self-care (01) ==
LOC: M OPP 08:48
PROVIDERS: ATTEND Surgery
DX: Z12.11 Encounter for screening for malignant neoplasm of colon (principal); K57.30 Diverticulosis of large intestine without perforation or abscess without bleeding; K64.8 Other hemorrhoids; Z79.82 Long term (current) use of aspirin; Z79.899 Other long term (current) drug therapy; Z88.8 Allergy status to other drugs, medicaments and biological substances; Z87.891 Personal history of nicotine dependence

== ENCOUNTER → 2022-04-23 | Outpatient (CLI) | payer BC ==
[~2022-04-23] MED LIST changes: +LEVO1TAB39 PO; -LEVO500T4 PO; -NS 1,000 ML IV ONE
== END ==
LOC: M EKG 14:42
PROVIDERS: ATTEND Family Medicine
DX: R00.2 Palpitations (principal)

== ENCOUNTER → 2022-07-09 | Outpatient (REF) | payer BC ==
[2022-07-09 17:38] LABS: URIC ACID 4.8 MG/DL (3.5-7.2)
== END ==
LOC: M LAB REF 16:13
PROVIDERS: ATTEND Family Medicine
DX: E53.8 Deficiency of other specified B group vitamins (principal); M10.9 Gout, unspecified

== ENCOUNTER → 2023-01-02 | Outpatient (CLI) | payer BC ==
[2023-01-02 10:04] LABS: ALBUMIN 3.5 G/DL (3.2-5.2); ALKALINE PHOSPHATASE 63 U/L (46-116); ALT/SGPT 17 U/L (7.0-40); AST/SGOT 22 U/L (<34); BILIRUBIN,TOTAL 0.4 MG/DL (0.3-1.2); BLOOD UREA NITROGEN 11 MG/DL (9-23); CARBON DIOXIDE LEVEL 33 MMOL/L (20-31); CHLORIDE LEVEL 106 MMOL/L (98-107); CHOLESTEROL LEVEL 168 MG/DL (<200); CHOLESTEROL RISK RATIO 1.93 (<5); CREATININE FOR GFR 0.82 MG/DL (0.70-1.30); GLOMERULAR FILTRATION RATE > 60.0 (>60); GLUCOSE, FASTING 83 MG/DL (60-100); HDL CHOLESTEROL 86.8 MG/DL (>40); LDL CHOLESTEROL 62.4 MG/DL (<100); NON-HDL-C 81.2 MG/DL; POTASSIUM SERUM 3.7 MMOL/L (3.5-5.1); SODIUM LEVEL 143 MMOL/L (136-145); TOTAL PROTEIN 7.1 G/DL (5.7-8.2); TRIGLYCERIDES LEVEL 94 MG/DL (<150)
== END ==
LOC: M LAB 09:23
PROVIDERS: ATTEND Family Medicine
DX: E78.5 Hyperlipidemia, unspecified (principal); I10 Essential (primary) hypertension

== ENCOUNTER → 2023-06-24 | Outpatient (REF) | payer BC ==
[2023-06-24 17:31] LABS: FERRITIN 16.2 NG/ML (10.5-307.3)
[2023-06-24 17:32] LABS: FOLATE > 24.0 NG/ML (>5.4); VITAMIN B12 LEVEL 1152 PG/ML (211-911)
== END ==
LOC: M LAB REF 16:37
PROVIDERS: ATTEND Family Medicine
DX: E53.8 Deficiency of other specified B group vitamins (principal)

== ENCOUNTER → 2023-12-14 | Outpatient (CLI) | payer BC ==
[~2023-12-14] MED LIST changes: -OXYB5TAB10 PO; +OXYB5TAB14 PO
== END ==
LOC: M WUC 15:14
PROVIDERS: ATTEND Nurse Practitioner Family
DX: R05.1 Acute cough (principal); R06.02 Shortness of breath

== ENCOUNTER → 2023-12-30 | Outpatient (REF) | payer BC | LOC: M LAB REF 16:40 | PROVIDERS: ATTEND Family Medicine | DX: M10.9 Gout, unspecified (principal) ==

== ENCOUNTER → 2024-02-27 | Outpatient (CLI) | payer BC | LOC: M RAD 14:08 | PROVIDERS: ATTEND Nurse Practitioner Family | DX: N44.2 Benign cyst of testis (principal); N50.3 Cyst of epididymis; N50.819 Testicular pain, unspecified ==

== ENCOUNTER → 2024-07-01 | Outpatient (CLI) | payer BC ==
[2024-07-01 09:12] LABS: BASO # 0.1 10^3/uL (0.0-0.2); BASO % 1.6 % (0.0-1.0); EOS # 0.1 10^3/uL (0.0-0.5); EOS % 3.7 % (0.0-3.0); HEMATOCRIT 41.5 % (42.0-52.0); HEMOGLOBIN 14.2 g/dl (13.5-17.5); LYMPH # 1.6 10^3/uL (1.5-5.0); LYMPH % 41.2 % (24.0-44.0); MEAN CORPUSCULAR HEMOGLOBIN 32.4 pg (27.0-33.0); MEAN CORPUSCULAR HGB CONC 34.2 g/dl (32.0-36.5); MEAN CORPUSCULAR VOLUME 94.7 fl (80.0-96.0); MONO # 0.4 10^3/uL (0.0-0.8); MONO % 10.8 % (2.0-8.0); NEUTROPHILS # 1.6 10^3/uL (1.5-8.5); NEUTROPHILS % 42.4 % (36.0-66.0); PLATELET COUNT, AUTOMATED 136 10^3/uL (150-450); RED BLOOD COUNT 4.38 10^6/uL (4.30-6.10); WHITE BLOOD COUNT 3.8 10^3/uL (4.0-10.0)
[2024-07-01 09:24] LABS: ALKALINE PHOSPHATASE 114 U/L (46-116); ALT/SGPT 24 U/L (7.0-40); AST/SGOT 43 U/L (<34); BILIRUBIN,TOTAL 0.5 MG/DL (0.3-1.2); BLOOD UREA NITROGEN 9 MG/DL (9-23); CALCIUM LEVEL 9.5 MG/DL (8.5-10.1); CARBON DIOXIDE LEVEL 32 MMOL/L (20-31); CHLORIDE LEVEL 104 MMOL/L (98-107); CHOLESTEROL LEVEL 147 MG/DL (<200); CHOLESTEROL RISK RATIO 1.83 (<5); GLOMERULAR FILTRATION RATE > 60.0 (>60); GLUCOSE, FASTING 96 MG/DL (60-100); HDL CHOLESTEROL 80.3 MG/DL (>40); LDL CHOLESTEROL 40.5 MG/DL (<100); NON-HDL-C 66.7 MG/DL; POTASSIUM SERUM 3.9 MMOL/L (3.5-5.1); SODIUM LEVEL 140 MMOL/L (136-145); TOTAL PROTEIN 6.9 G/DL (5.7-8.2); TRIGLYCERIDES LEVEL 131 MG/DL (<150)
[2024-07-01 09:25] LABS: THYROID STIMULATING HORMONE 0.557 uIU/ML (0.55-4.78)
== END ==
LOC: M LAB 08:26
PROVIDERS: ATTEND Family Medicine
DX: K21.9 Gastro-esophageal reflux disease without esophagitis (principal); E78.5 Hyperlipidemia, unspecified

== ENCOUNTER → 2025-01-05 | Outpatient (CLI) | payer OTHER ==
[2025-01-05 12:06] LABS: HEMOGLOBIN 14.2 g/dl (13.5-17.5); MEAN CORPUSCULAR HEMOGLOBIN 36.2 pg (27.0-33.0); MEAN CORPUSCULAR HGB CONC 35.5 g/dl (32.0-36.5); PLATELET COUNT, AUTOMATED 124 10^3/uL (150-450); RED BLOOD COUNT 3.92 10^6/uL (4.30-6.10); WHITE BLOOD COUNT 4.4 10^3/uL (4.0-10.0)
[2025-01-05 12:38] LABS: ALKALINE PHOSPHATASE 101 U/L (40-129); ALT/SGPT 43 U/L (7.0-40); AST/SGOT 79 U/L (<34); BILIRUBIN,TOTAL 0.8 MG/DL (0.3-1.2); BLOOD UREA NITROGEN 9 MG/DL (9-23); CALCIUM LEVEL 8.8 MG/DL (8.5-10.1); CARBON DIOXIDE LEVEL 32 MMOL/L (20-31); CHLORIDE LEVEL 101 MMOL/L (98-107); CHOLESTEROL LEVEL 157 MG/DL (<200); CHOLESTEROL RISK RATIO 1.76 (<5); CREATININE FOR GFR 0.67 MG/DL (0.70-1.30); GLOMERULAR FILTRATION RATE > 90.0 (>60); GLUCOSE, FASTING 94 MG/DL (60-100); HDL CHOLESTEROL 88.9 MG/DL (>40); LDL CHOLESTEROL 53.3 MG/DL (<100); NON-HDL-C 68.1 MG/DL; POTASSIUM SERUM 4.1 MMOL/L (3.5-5.1); SODIUM LEVEL 139 MMOL/L (136-145); TOTAL PROTEIN 6.5 G/DL (5.7-8.2); TRIGLYCERIDES LEVEL 74 MG/DL (<150)
[2025-01-05 12:40] LABS: THYROID STIMULATING HORMONE 0.623 uIU/ML (0.55-4.78)
== END ==
LOC: M LAB 11:25
PROVIDERS: ATTEND Family Medicine
DX: I10 Essential (primary) hypertension (principal); D64.9 Anemia, unspecified; E78.5 Hyperlipidemia, unspecified

== ENCOUNTER → 2025-02-01 | Outpatient (CLI) | payer OTHER ==
[~2025-02-01] MED LIST changes: -FLOM0.4C39 PO; +TAMS-18 PO
== END ==
LOC: M RAD 07:47
PROVIDERS: ATTEND Family Medicine
DX: R94.5 Abnormal results of liver function studies (principal); K76.0 Fatty (change of) liver, not elsewhere classified

== ENCOUNTER → 2025-05-12 | Outpatient (CLI) | payer OTHER ==
[2025-05-12 08:41] LABS: BASO # 0.1 10^3/uL (0.0-0.2); BASO % 1.4 % (0.0-1.0); EOS # 0.2 10^3/uL (0.0-0.5); EOS % 4.3 % (0.0-3.0); LYMPH # 1.2 10^3/uL (1.5-5.0); LYMPH % 33.2 % (24.0-44.0); MONO # 0.4 10^3/uL (0.0-0.8); MONO % 11.4 % (2.0-8.0); NEUTROPHILS # 1.8 10^3/uL (1.5-8.5); NEUTROPHILS % 49.7 % (36.0-66.0); PLATELET COUNT, AUTOMATED 112 10^3/uL (150-450)
[2025-05-12 09:06] LABS: ALT/SGPT 29 U/L (7.0-40); AST/SGOT 57 U/L (<34); CALCIUM LEVEL 9.4 MG/DL (8.5-10.1); CARBON DIOXIDE LEVEL 30 MMOL/L (20-31); CHLORIDE LEVEL 101 MMOL/L (98-107); CREATININE FOR GFR 0.83 MG/DL (0.70-1.30); GLOMERULAR FILTRATION RATE > 90.0 (>56); POTASSIUM SERUM 3.6 MMOL/L (3.5-5.1); SODIUM LEVEL 142 MMOL/L (136-145)
== END ==
LOC: M LAB 08:18
PROVIDERS: ATTEND Family Medicine
DX: D64.9 Anemia, unspecified (principal); I10 Essential (primary) hypertension

== ENCOUNTER → 2025-08-18 | Outpatient (CLI) | payer OTHER | LOC: M LAB 08:06 | PROVIDERS: ATTEND Student in an Organized Health Care Education/Training Program | DX: R94.5 Abnormal results of liver function studies (principal); K76.0 Fatty (change of) liver, not elsewhere classified; F10.20 Alcohol dependence, uncomplicated ==

== ENCOUNTER → 2025-09-14 | Outpatient (CLI) | payer OTHER ==
[2025-09-14 08:30] LABS: BASO # 0.0 10^3/uL (0.0-0.2); BASO % 0.6 % (0.0-1.0); EOS # 0.0 10^3/uL (0.0-0.5); EOS % 0.3 % (0.0-3.0); LYMPH # 2.6 10^3/uL (1.5-5.0); LYMPH % 37.4 % (24.0-44.0); MONO # 0.6 10^3/uL (0.0-0.8); MONO % 8.7 % (2.0-8.0); NEUTROPHILS # 3.7 10^3/uL (1.5-8.5); NEUTROPHILS % 52.9 % (36.0-66.0); PLATELET COUNT, AUTOMATED 139 10^3/uL (150-450)
[2025-09-14 08:55] LABS: ALT/SGPT 22 U/L (7.0-40); AST/SGOT 39 U/L (<34); CALCIUM LEVEL 9.4 MG/DL (8.5-10.1); CARBON DIOXIDE LEVEL 34 MMOL/L (20-31); CHLORIDE LEVEL 101 MMOL/L (98-107); CREATININE FOR GFR 0.81 MG/DL (0.70-1.30); GLOMERULAR FILTRATION RATE > 90.0 (>56); POTASSIUM SERUM 4.0 MMOL/L (3.5-5.1); SODIUM LEVEL 141 MMOL/L (136-145)
== END ==
LOC: M LAB 08:07
PROVIDERS: ATTEND Family Medicine
DX: I10 Essential (primary) hypertension (principal)